=== PATIENT | male | born 1960 | race Hispanic/Latino ===

== ENCOUNTER 2016-10-15 14:36 | Emergency (ER) | payer SELFPAY ==
[~2016-10-15] VITALS: Ht 175.3 cm; Wt 89.0 kg
[2016-10-15] MEDS ORDERED: MOTRIN800 MG PO (15:56)
[2016-10-15] MEDS ORDERED: LORTAB 5-325 MG1 TAB PO (15:56)
[2016-10-15 16:05] VITALS: BP 154/77
== END 2016-10-15 16:12 | disposition home or self-care (01) | DRG 558 ==
LOC: ED 14:36
DX: M75.52 Bursitis of left shoulder (principal); M25.512 Pain in left shoulder; X50.0XXA Overexertion from strenuous movement or load, initial encounter; Y93.89 Activity, other specified; Y92.89 Other specified places as the place of occurrence of the external cause